=== PATIENT | male | born 1955 ===

== ENCOUNTER 2022-11-20 06:02 | Observation (INO) ==
[2022-11-20] MEDS ORDERED: IOPAMIDOL 100 ML BOTTLE IV ONE (06:03)
[2022-11-20] MEDS ORDERED: 0.9 % SODIUM CHLORIDE 1,000 ML IV ONE (06:11)
[2022-11-20 06:34] LABS: POC Calcium, Ionized 1.29 (1.16-1.32); POC Creatinine 0.9 (0.6-1.2); POC Potassium 3.7 (3.3-5.1)
[2022-11-20 07:26] LABS: Basophils # (Auto) 0.05 K/mcL (0.00-0.30); Basophils % (Auto) 0.2 % (0.0-2.0); Eosinophils # (Auto) 0.01 K/mcL (0.00-0.70); Eosinophils % (Auto) 0 % (0.0-7.0); Hematocrit 46.1 % (40.1-51.0); Hemoglobin 15.5 g/dL (13.7-17.5); Lymphocytes # (Auto) 2.86 K/mcL (1.50-4.80); Lymphocytes % (Auto) 13.7 % (15.5-49.0); Mean Cell Volume 91.8 fL (80.0-100.0); Mean Corpuscular HGB Conc 33.6 g/dL (31.0-36.0); Mean Platelet Volume 9.9 fL (8.8-12.5); Monocytes % (Auto) 11.5 % (1.0-12.0); Neutrophils % (Auto) 73.9 % (38.0-78.0); Platelet Count 332 K/mcL (140-440); RBC 5.02 M/mcL (4.63-6.08); Red Cell Distribution Width 11.8 % (11.5-14.5); WBC 20.9 K/mcL (4.5-11.0)
[2022-11-20 07:52] LABS: ALT/SGPT 22 U/L (<40); AST/SGOT 21 U/L (<40); Albumin 4.7 gm/dL (3.2-5.2); Alkaline Phosphatase 54 U/L (39-117); Bilirubin,Direct 0.2 mg/dL (<0.3)
[2022-11-20] MEDS ORDERED: PIPERACILLIN SODIUM/TAZOBACTAM 3.375 GM in DEXTROSE 5% IN WATER 50 ML IV ONE (08:00)
[2022-11-20] MEDS ORDERED: KETOROLAC 30 MG/ML VIAL IV PRN (08:44)
[2022-11-20] MEDS ORDERED: ONDANSETRON 4 MG/2 ML VIAL IV PRN ×3 (08:44→15:18)
[2022-11-20] MEDS ORDERED: HYDROmorphone 0.5 MG/0.5 ML SYRINGE IV PRN ×2 (08:45→15:18)
[2022-11-20] MEDS ORDERED: LACTATED RINGERS 1,000 ML IV SCH ×2 (08:45→15:30)
[2022-11-20] MEDS ORDERED: metroNIDAZOLE 500 MG/100 ML BAG IV ONE (08:49)
[2022-11-20] MEDS ORDERED: PROMETHAZINE 25 MG/ML VIAL IV PRN ×2 (08:49→15:18)
[2022-11-20] MEDS ORDERED: CEFEPIME 2 GM VIAL IV SCH (09:00)
[2022-11-20 09:26] LABS: POC INR 1.1 (0.8-1.2); POC Pro Time 13.1 (11.9-14.5)
[2022-11-20] MEDS ORDERED: KETOROLAC 15 MG/ML VIAL IV PRN (11:15)
[2022-11-20] MEDS: 0.9 % SODIUM CHLORIDE 1,000 ML IV SCH ×2 (11:59→17:40)
[2022-11-20] MEDS ORDERED: IPRATROPIUM/ALBUTEROL 3 ML AMPUL.NEB NEB PRN ×2 (13:40→15:18)
[2022-11-20] MEDS ORDERED: KETAMINE 50 MG/ML Syringe IV ONE (14:44)
[2022-11-20] MEDS ORDERED: KETOROLAC 30 MG/ML VIAL ONE (14:44)
[2022-11-20] MEDS ORDERED: PROPOFOL 200 MG/20 ML VIAL IV ONE (14:44)
[2022-11-20] MEDS ORDERED: SUGAMMADEX SODIUM 200 MG/2 ML VIAL IV ONE (14:44)
[2022-11-20] MEDS ORDERED: ROCURONIUM 10 MG/ML ML IV ONE (14:44)
[2022-11-20] MEDS ORDERED: fentaNYL 100 MCG/2 ML VIAL IV ONE (14:44)
[2022-11-20] MEDS ORDERED: ONDANSETRON 4 MG/2 ML VIAL ONE (14:44)
[2022-11-20] MEDS ORDERED: LIDOCAINE HCL/PF 100 MG/5 ML SYRINGE IV ONE (14:44)
[2022-11-20] MEDS ORDERED: MAGNESIUM SULFATE 2 GM/50 ML BAG IV ONE (14:44)
[2022-11-20] MEDS ORDERED: DEXAMETHASONE 10 MG/ML VIAL ONE (14:44)
[2022-11-20] MEDS: PIPERACILLIN SODIUM/TAZOBACTAM 3.375 GM in DEXTROSE 5% IN WATER 50 ML IV SCH ×2 (14:45→20:21)
[2022-11-20] MEDS ORDERED: fentaNYL 100 MCG/2 ML VIAL IV PRN (15:18)
[2022-11-20] MEDS ORDERED: LACTATED RINGERS 250 ML IV PRN (15:18)
[2022-11-20] MEDS ORDERED: METHOCARBAMOL 1,000 MG/10 ML VIAL IV PRN (15:18)
[2022-11-20] MEDS ORDERED: MEPERIDINE 25 MG/ML VIAL IV PRN (15:18)
[2022-11-20] MEDS ORDERED: ACETAMINOPHEN 1,000 MG/100 ML BAG IV ONE (15:18)
[2022-11-20] MEDS ORDERED: diphenhydrAMINE 50 MG/ML VIAL IV PRN (15:18)
[2022-11-20] MEDS: PANTOPRAZOLE 40 MG VIAL IV SCH (17:40)
[2022-11-21] MEDS: 0.9 % SODIUM CHLORIDE 1,000 ML IV SCH ×2 (01:41→09:27)
[2022-11-21] MEDS: PIPERACILLIN SODIUM/TAZOBACTAM 3.375 GM in DEXTROSE 5% IN WATER 50 ML IV SCH ×3 (01:41→12:31)
[2022-11-21 06:39] LABS: Basophils # (Auto) 0.02 K/mcL (0.00-0.30); Basophils % (Auto) 0.1 % (0.0-2.0); Eosinophils # (Auto) 0 K/mcL (0.00-0.70); Eosinophils % (Auto) 0 % (0.0-7.0); Hematocrit 39.3 % (40.1-51.0); Lymphocytes # (Auto) 1.24 K/mcL (1.50-4.80); Lymphocytes % (Auto) 8.8 % (15.5-49.0); Mean Cell Volume 92.5 fL (80.0-100.0); Mean Corpuscular HGB Conc 33.1 g/dL (31.0-36.0); Mean Platelet Volume 9.5 fL (8.8-12.5); Monocytes # (Auto) 0.97 K/mcL (0.10-0.90); Monocytes % (Auto) 6.9 % (1.0-12.0); Neutrophils % (Auto) 83.7 % (38.0-78.0); Platelet Count 243 K/mcL (140-440); RBC 4.25 M/mcL (4.63-6.08); Red Cell Distribution Width 11.8 % (11.5-14.5); WBC 14.1 K/mcL (4.5-11.0)
[2022-11-21 06:54] LABS: ALT/SGPT 13 U/L (<40); AST/SGOT 12 U/L (<40); Albumin 3.3 gm/dL (3.2-5.2); Albumin/Globulin Ratio 1.2 (1.0-2.3); Alkaline Phosphatase 42 U/L (39-117); Bilirubin,Direct 0.3 mg/dL (<0.3); Bilirubin,Total 0.7 mg/dL (0.1-1.0); Blood Urea Nitrogen 10 mg/dL (8-23); Calcium 8.9 mg/dL (8.6-10.4); Carbon Dioxide 20 mmol/L (22-30); Chloride 106 mmol/L (96-108); Globulin 2.8 gm/dL (2.2-3.7); Glomerular Filtration Rate 98; Glucose 136 mg/dL (70-105); Lactate Dehydrogenase 138 U/L (135-225); Phosphorous 2.2 mg/dL (2.5-4.5); Triglycerides 35 mg/dL (<150); Uric Acid 3.1 mg/dL (2.5-8.0)
[2022-11-21] MEDS: PANTOPRAZOLE 40 MG VIAL IV SCH (07:06)
== END 2022-11-21 13:35 | disposition home or self-care (01) ==
LOC: MEDSUR 06:02 → ED 06:02 → MEDSUR 09:30
PROVIDERS: ADMIT Family Medicine Adult Medicine; ATTEND Family Medicine Adult Medicine